=== PATIENT | female | born 1970 | race Caucasian/White ===

== ENCOUNTER → 2021-01-02 | Outpatient (CLI) | payer BC ==
[~2021-01-02] MED LIST: COLACE 100MG C100 MG PO; FERROUSUL325 MG PO; IBUPROFEN600 MG PO; MOBIC15 MG PO; NORCO 5-325 TA1 EACH PO
== END ==
LOC: MRI 12-26 08:30
DX: R68.89 Other general symptoms and signs (principal); J32.0 Chronic maxillary sinusitis
CPT/HCPCS: 70553; A9577

== ENCOUNTER → 2021-03-06 | Outpatient (CLI) | payer BC | LOC: KOH-I 15:30 | DX: J32.9 Chronic sinusitis, unspecified (principal); J32.4 Chronic pansinusitis | CPT/HCPCS: 70486 ==

== ENCOUNTER → 2021-07-20 | Outpatient (CLI) | payer BC | LOC: KOH-I 07-18 10:30 | DX: E04.1 Nontoxic single thyroid nodule (principal) | CPT/HCPCS: 76536 ==

== ENCOUNTER 2022-02-07 10:17 | Emergency (ER) | payer BC ==
[2022-02-07 10:47] LABS: HEMOGLOBIN 14.2 gm/dl (12.3-15.3); RED BLOOD COUNT 4.61 M/UL (4.00-5.10); WHITE BLOOD COUNT 6.1 K/UL (4.5-11.0)
[2022-02-07 11:14] LABS: BUN/CREATININE RATIO 22 (0-10)
== END 2022-02-07 13:00 | disposition home or self-care (01) ==
LOC: ER1 10:17
PROVIDERS: Emergency Medicine
DX: R07.81 Pleurodynia (principal); R07.89 Other chest pain
CPT/HCPCS: 71045; 80053; 82550; 82553; 84484; 85025; 85379; 93005; 99284

== ENCOUNTER → 2022-03-22 | Outpatient (CLI) | payer BC | LOC: CT 09:34 | DX: R10.10 Upper abdominal pain, unspecified (principal) | CPT/HCPCS: 74170; Q9967 ==